=== PATIENT | male | born 1995 | race Caucasian/White ===

== ENCOUNTER 2016-08-06 20:54 | Emergency (ER) | payer BC ==
[2016-08-06 21:27] VITALS: BP 122/83
--- NOTE | 2016-08-06 21:31 | UC ---
Hand/Wrist HPI - History Of Current Complaint Chief Complaint: Ashleigh Stated Complaint: RIGHT HAND,PINKY INJURY Time Seen by Provider: 08/06/16 21:24 Hx Obtained From: Patient Onset/Duration: Sudden Onset - 4 days ago C/O metalic FB right 5th finger bravo over the PIP, Worse Since - today with more redness, swelling and pain Severity Initially: Mild Severity Currently: Moderate Character Of Pain: Dull, Aching Aggravating Factor(s): Movement, Flexion Alleviating: Rest Associated Signs And Symptoms: Positive: Swelling, Redness Related History: Dominant Hand Right - Allergies/Home Medications Allergies/Adverse Reactions: Allergies Allergy/AdvReac Type Severity Reaction Status Date / Time No Known Allergies Allergy Verified 08/06/16 21:13 Home Medications: Home Medications Lamotrigine [Lamictal] 2 tab PO DAILY 08/06/16 [History Confirmed 08/06/16] PMH/Surg Hx/FS Hx/Imm Hx Previously Healthy: Yes Endocrine History Of: Denies: Diabetes Cardiovascular History Of: Denies: Hypertension Respiratory History Of: Denies: Asthma - Surgical History Surgical History: Yes Surgery Procedure, Year, and Place: TONSILLECTOMY - Family History Known Family History: Positive: Cardiac Disease, Hypertension, Diabetes - Social History Occupation: Employed Full-time Lives: With Family Alcohol Use: Rare Substance Use Type: None Smoking Status (MU): Never Smoked Tobacco Review of Systems Skin: Other - redness and pain right 5th finger All Other Systems Reviewed And Are Negative: Yes Physical Exam Triage Information Reviewed: Yes Appearance: Well-Appearing, No Pain Distress, Well-Nourished Vital Signs: Initial Vital Signs Temp 98.4 F 08/06/16 21:09 Pulse 78 08/06/16 21:09 Resp 12 08/06/16 21:09 BP 122/83 08/06/16 21:09 Pulse Ox 100 08/06/16 21:09 Vital Signs Reviewed: Yes Eyes: Positive: Conjunctiva Clear Neck exam: Normal Respiratory Exam: Normal Cardiovascular Exam: Normal Musculoskeletal: Positive: ROM Limited @ - right 5th finger PIP with swelling Neurological Exam: Normal Psychological Exam: Normal Skin: Positive: Other - erythema right 5th finger Hand/Wrist Course/Dx - Differential Dx/Diagnosis Differential Diagnosis/HQI/PQRI: Cellulitis, Foreign Body, Infection Provider Diagnoses: Foreign body finger. Cellulitis right finger Discharge - Discharge Plan Condition: Stable Disposition: HOME Prescriptions: Cephalexin CAP* [Keflex 500 CAP*] 500 mg PO QID #28 cap Patient Education Materials: Cellulitis (ED), Cephalexin (By mouth), Soft Tissue Foreign Body (ED) Additional Instructions: Use a magnet to help draw the piece of metal out. A strong magnet, like a rare earth magnet.
[2016-08-06] MEDS ORDERED: Cephalexin CAP* 500 MG PO ONE (21:46)
--- NOTE | 2016-08-06 21:49 | RAD ---
INDICATION: Evaluate for foreign body after piece of metal penetrated the right small finger. TECHNIQUE: 3 views of the right small finger were obtained. FINDINGS: In the superficial subcutaneous tissue overlying the palmar aspect of the right small finger proximal interphalangeal joint there is a 2 mm hyperdense metallic fragment. The bones are normal alignment. Joint spaces appear maintained. No fracture is seen. IMPRESSION: 2 MM METALLIC FRAGMENT IN THE SUBCUTANEOUS TISSUE OVERLYING THE PALMAR ASPECT OF THE RIGHT SMALL FINGER PROXIMAL INTERPHALANGEAL JOINT.
== END 2016-08-06 21:59 | disposition home or self-care (01) ==
LOC: UCCORT 20:54
DX: S60.456A Superficial foreign body of right little finger, initial encounter (principal); L03.011 Cellulitis of right finger; X58.XXXA Exposure to other specified factors, initial encounter; Y93.9 Activity, unspecified; Y92.9 Unspecified place or not applicable
CPT/HCPCS: 73140; 99202; A9270-GY; G0463